=== PATIENT | male | born 1965 | race Caucasian/White ===

== ENCOUNTER 2017-01-06 08:00 | Emergency (ER) ==
[2017-01-06] MEDS ORDERED: CATAPRES PO ONE (08:34)
[2017-01-06 09:03] LABS: MANUAL DIFF NEEDED? NO
[2017-01-06 09:08] LABS: BASO% 0.3 % (0.0-0.8); EOS# 0.09 X1000 (0.0-0.7); EOS% 1.5 % (0.0-10.0); HEMATOCRIT 44.1 % (42.0-52.0); HEMOGLOBIN 15.3 g/dL (14.0-18.0); IMM GRAN# 0.01 X1000 (0.0-0.04); IMM GRAN% 0.2 % (0.0-0.5); LYMPH# 1.25 X1000 (1.2-3.4); LYMPH% 20.7 % (20.5-51.1); MCH 29.3 PG (27-31); MCHC 34.7 g/dL (33-37); MCV 84.3 FL (81-99); MONO# 0.43 X1000 (0.11-0.59); MONO% 7.1 % (1.7-9.3); MPV 11.3 FL (7.4-10.4); NEUT% 70.2 % (42.2-75.2); PLT 238 X1000 (130-400); RBC 5.23 XMIL (4.7-6.1)
--- NOTE | 2017-01-06 09:21 | PROVIDER DOCUMENTATION ---
HPI-General Adult - General Chief Complaint: B/P Problems Stated Complaint: HIGH B/P PROBLEMS Time Seen by Provider: 01/06/17 08:12 Source: patient Allergies/Adverse Reactions: Patient Allergies Allergy/AdvReac Type Severity Reaction Status Date / Time No Known Allergies Allergy Verified 01/06/17 08:16 Home Medications: Home Medication List Medication Instructions Recorded Confirmed Last Taken Type Amlodipine Besylate [Norvasc] 5 mg PO DAILY 01/06/17 01/06/17 Unknown History Naproxen/Esomeprazole Mag [Vimovo 500 mg PO BID 01/06/17 01/06/17 Unknown History 500-20 mg Tablet] Tramadol HCl [Ultram] 50 mg PO BID 01/06/17 01/06/17 Unknown History - History of Present Illness -Gen Adult Nature of Presenting Problems: Pt is 51 y/o M presents to the ED with elevated BP. Pt states BP goes up and down. Pt states the highest BP read he had was 200/113. Pt states mild LOUIS. Pt denies cough and CP. Location of Pain/Injury: reports: head Pain Radiation: reports: no radiation Quality of Pain: reports: aching Severity: reports: mild Onset/Duration: reports: 4 days ago Timing: reports: still present, intermittent Context/Activities at Onset: reports: light activity Modifying Factors: improves with: nothing Associated Symptoms: reports: headaches. denies: anxiety, arm pain, back/neck pain, chest pain, constipation, cough, diaphoresis, diarrhea, dizziness, EENT symptoms, fatigue, fever/chills, genitourinary problems, heartburn, joint pain, loss of appetite, malaise, muscle aches, sinus congestion/drainage, nausea, rash , seizure, shortness of breath, sensory/motor loss, pain with inspiration, swelling/mass in abdomen, syncope, vomiting, weakness, trouble walking Similar Symptoms Previously?: Yes Recently seen or treated by another doctor?: No Review of Systems - Adult - REVIEW OF SYSTEMS - ADULT Constitutional: denies: chills, fever Eyes: denies: blurred vision, double vision Ears, Nose, Mouth & Throat: denies: ear pain, nose pain, throat pain Cardiovascular: denies: chest pain, heart murmur, irregular heart rate Respiratory: denies: cough, shortness of breath, wheezing Gastrointestinal: denies: abdominal pain, diarrhea, nausea, vomiting Genitourinary: denies: dysuria, hematuria Musculoskeletal: denies: bone pain, joint pain, neck pain Integumentary: denies: hives, itching Neurological: reports: headache/migraines (LOUIS). denies: dizziness/vertigo Psychiatric: denies: anxiety, depression Endocrine: reports: no symptoms reported Hematologic/Lymphatic: reports: no symptoms reported Allergic/Immunologic: reports: no symptoms reported All Other Systems: Reviewed and Negative Past History - Adult - PAST MEDICAL HISTORY-ADULT Review of Records: reports: Nursing Assessment Review, Medications Reviewed, Social history reviewed & non-contributory. Major Childhood Illnesses: reports: denies history Cardiovascular: reports: HTN Respiratory: reports: denies history Gastrointestinal: reports: denies history Obstetrical/Gynecological: reports: denies history Genitourinary: reports: denies history Musculoskeletal: reports: arthritis Neurological: reports: denies history Endocrine/Immune: reports: denies history Other Conditions: reports: denies history - PRIOR SURGERIES/PROCEDURES Surgical/Procedure History: reports: reviewed, not pertinent - IMMUNIZATION STATUS Childhood Immunizations: See Nurse Assessment Flu Vaccine: See Nurse Assessment - FAMILY HISTORY Family History: reviewed, not pertinent - SOCIAL HISTORY Smoking: chew, greater than 1 pack/day Provider spent 3-5 mins advising pt. on dangers of tobacco.: Discussed manners to quit use, and f/u contacts for add'l counseling. Substance Use: denies Living Situation: family Physical Exam-General - PHYSICAL EXAM-ADULT Initial Vital Signs Reviewed: Yes - CONSTITUTIONAL General Appearance: appears well, alert, no apparent distress - EYES Eyes: PERRL/EOMI, pink conjunctivae, fundi clear, no AV nicking - HEAD, EARS, NOSE, MOUTH & THROAT HENMT: normocephalic/atraumatic, moist mucous membranes, normal ENT inspection, TMs normal, pharynx normal - NECK Neck: non-tender, full range of motion, supple, normal inspection - RESPIRATORY Respiratory: chest non-tender, lungs clear, normal breath sounds, no pleuratic chest pain, no respiratory distress, no accessory muscle use - CARDIOVASCULAR Cardiovascular: normal peripheral pulses, regular rate, rhythm, no edema, no gallop, no JVD, no murmur - GASTROINTESTINAL (ABDOMEN) Abdominal Exam: normal bowel sounds, non tender, soft, no organomegaly, no pulsatile mass - LYMPHATIC Lymphatic: no adenopathy - MUSCULOSKELETAL Back Exam: normal inspection, no CVA tenderness, no vertebral tenderness Extremity: normal range of motion, non-tender, normal gait, normal inspection, no pedal edema, no calf tenderness, normal capillary refill, pelvis stable - SKIN Integumentary: normal color, normal turgor, warm/dry - NEUROLOGIC Neurologic: x ray operator II-XII nml as tested, grossly normal, no motor/sensory deficits - PSYCHIATRIC Psych/Mental Status: normal mood/affect, normal thought content, normal thought process, oriented x 3 Progress - PLAN OF CARE/RESULTS Progress/Plan/Lab Results: Laboratory Tests 01/06/17 08:55 WBC 6.03 RBC 5.23 Hgb 15.3 Hct 44.1 MCV 84.3 MCH 29.3 MCHC 34.7 RDW Std Deviation 12.8 Plt Count 238 MPV 11.3 H Immature Gran % (Auto) 0.2 Neut % (Auto) 70.2 Lymph % (Auto) 20.7 Armstrong % (Auto) 7.1 Eos % (Auto) 1.5 Baso % (Auto) 0.3 Immature Gran # (Auto) 0.01 Neut # (Auto) 4.23 Lymph # (Auto) 1.25 Armstrong # (Auto) 0.43 Eos # (Auto) 0.09 Baso # (Auto) 0.02 Orders Category Date Time Status Cardiac Monitoring DIRECTED Care 01/06/17 08:34 Active CHEST-PORTABLE [RAD] Stat Exams 01/06/17 08:34 Taken CBC WITH ELECTRONIC DIFF [HEME] Stat Lab 01/06/17 08:55 Completed CK PROFILE [SP CHEM] Stat Lab 01/06/17 08:55 Received COMPREHENSIVE METABOLIC PANEL [CHEM] Stat Lab 01/06/17 08:55 Received MAGNESIUM [CHEM] Stat Lab 01/06/17 08:55 Received PRO B-NATRIURETIC PEPTIDE Stat Lab 01/06/17 08:55 Received TROPONIN T Stat Lab 01/06/17 08:55 Received Clonidine [Catapres] Med 01/06/17 08:34 Discontinued 0.1 mg PO NOW ONE EKG [EKG] Stat Ther 01/06/17 08:34 Ordered Vital Signs - 24 hr 01/06/17 08:11 Temperature 97.8 F Pulse Rate 88 Respiratory 20 Rate Blood Pressure 175/99 O2 Sat by Pulse 99 Oximetry Laboratory Tests 01/06/17 01/06/17 01/06/17 08:55 08:55 08:55 WBC RBC Hgb Hct MCV MCH MCHC RDW Std Deviation Plt Count MPV Immature Gran % (Auto) Neut % (Auto) Lymph % (Auto) Armstrong % (Auto) Eos % (Auto) Baso % (Auto) Immature Gran # (Auto) Neut # (Auto) Lymph # (Auto) Armstrong # (Auto) Eos # (Auto) Baso # (Auto) Sodium 137 Potassium 4.0 Chloride 100 Carbon Dioxide 26 Anion Gap 11 BUN 18 Creatinine 0.7 Estimated GFR/1.73 m2 > 60 BUN/Creatinine Ratio 26 Glucose 129 H Calculated Osmolality 277 Calcium 9.4 Magnesium 2.5 Total Bilirubin 0.40 AST 21 ALT 24 Alkaline Phosphatase 93 Creatine Kinase 70 Troponin T < 0.010 [id number] Pept 58 Total Protein 7.0 Albumin 4.0 Globulin 3.0 Albumin/Globulin Ratio 1.0 01/06/17 08:55 WBC 6.03 RBC 5.23 Hgb 15.3 Hct 44.1 MCV 84.3 MCH 29.3 MCHC 34.7 RDW Std Deviation 12.8 Plt Count 238 MPV 11.3 H Immature Gran % (Auto) 0.2 Neut % (Auto) 70.2 Lymph % (Auto) 20.7 Armstrong % (Auto) 7.1 Eos % (Auto) 1.5 Baso % (Auto) 0.3 Immature Gran # (Auto) 0.01 Neut # (Auto) 4.23 Lymph # (Auto) 1.25 Armstrong # (Auto) 0.43 Eos # (Auto) 0.09 Baso # (Auto) 0.02 Sodium Potassium Chloride Carbon Dioxide Anion Gap BUN Creatinine Estimated GFR/1.73 m2 BUN/Creatinine Ratio Glucose Calculated Osmolality Calcium Magnesium Total Bilirubin AST ALT Alkaline Phosphatase Creatine Kinase Troponin T [id number]-Apafbwwyolj Pept Total Protein Albumin Globulin Albumin/Globulin Ratio - REASSESSMENT Reassessment #1 Time Reassessed: 10:14 (Dr. Tavarez at bedside with Pt ) Status: improving Reassessment Comment: Pt states is feeling better Departure - Departure Time of Disposition Order: 10:13 DIAGNOSIS: Elevated blood pressure reading Disposition: HOME 01 Certified Medical Emergency: Emergent Condition: Stable Additional Instructions: ED Follow Up Instructions: You have been treated by a care provider in the Emergency Department. These instructions are being provided to you so you can have an understanding of how to care for yourself upon discharge. Upon discharge from the Emergency Department, you are responsible for making arrangements for follow-up care by a physician of your choice. Take all prescribed medications as directed. Return to the Emergency Department immediately for any new or worsening symptoms. You may call the Physician Referral phone number at [phone] to obtain a list of Physicians who are taking new patients. Attestation - Scribe Verification/Attestation Scribe:: Sirisha Billy Acting as Scribe for:: Cornel Tavarez Scribe documention review:: This chart was documented by a scribe and accurately reflects the service the provider performed and the decisions made by the provider.
[2017-01-06 09:27] LABS: AGAP 11; ALKALINE PHOSPHATASE 93 U/L (32-122); BUN 18 mg/dL (8-22); CALCIUM 9.4 mg/dL (8.8-10.2); CHLORIDE 100 mmol/L (98-107); CK PROFILE 70 U/L (24-204); COSMO 277; GOT 21 U/L (10-34); GPT 24 U/L (10-44); MAGNESIUM 2.5 mg/dL (1.5-2.7); SODIUM 137 mmol/L (136-145); TCO2 26 mmol/L (25-35)
--- NOTE | 2017-01-06 09:47 | Diag Imaging Result Document ---
PROCEDURE NAME: CHEST-PORTABLE - 01/06/2017 CHEST SINGLE VIEW: INDICATION: Elevated BP. COMPARISON: No comparison studies. FINDINGS: The heart size is within normal limits. The pulmonary vasculature is not congested. No infiltrates or effusions are identified. There is an old left clavicle fracture. IMPRESSION: No acute cardiopulmonary abnormality.
[2017-01-06 11:19] VITALS: BP 130/86
== END 2017-01-06 11:20 | disposition home or self-care (01) ==
LOC: P.ED 08:00
DX: I10 Essential (primary) hypertension (principal); R51 Headache; M19.90 Unspecified osteoarthritis, unspecified site; Z79.899 Other long term (current) drug therapy; F17.210 Nicotine dependence, cigarettes, uncomplicated; F17.220 Nicotine dependence, chewing tobacco, uncomplicated; Z71.6 Tobacco abuse counseling
CPT/HCPCS: 36415; 71010; 80053; 82550; 83735; 83880; 84484; 85025; 93005; 99284